=== PATIENT | female | born 1970 | race Hispanic/Latino ===

== ENCOUNTER 2025-08-05 11:03 | Emergency (ER) | payer BC ==
[~2025-08-05] VITALS: Ht 149.9 cm; Wt 68.5 kg
--- NOTE | 2025-08-05 11:18 | NUR ---
PT IN ROOM
[2025-08-05 11:28] LABS: IMMATURE GRANULOCYTE ABSOLUTE 0.03 K/uL (0-1); NUCLEATED RED BLOOD CELLS 0.0 % (0.0-0.19); PLATELET COUNT (AUTO) 290 K/uL (130-400); RED BLOOD CELL COUNT(AUTO) 5.04 MIL/uL (4.00-5.50); RED CELL DISTRIBUTION WIDTH 13.9 % (11.0-15.5); WHITE BLOOD COUNT (AUTO) 10.4 K/uL (4.8-10.8)
[2025-08-05 11:34] LABS: CREATININE 1.1 mg/dL (0.5-1.0); GLOMERULAR FILTR. RATE CALC 59.0 mL/min (>90); GLUCOSE,RANDOM 88.0 mg/dL (70-105); SODIUM SERUM 137.0 mmol/L (136-145); UREA NITROGEN, BLOOD 17.0 mg/dL (7-18)
[2025-08-05 11:58] LABS: SARS-CoV-2, RNA, NAAT NEGATIVE SARS CoV-2 (NEGATIVE)
[2025-08-05 12:00] VITALS: PULSE 110; RESP 20
[2025-08-05 12:05] LABS: INFLUENZA TYPE A Negative For Type A (NEGATIVE); INFLUENZA TYPE B Negative For Type B (NEGATIVE)
--- NOTE | 2025-08-05 12:17 | HMCIMG ---
EXAM: CR Chest, 1 View. CLINICAL HISTORY: cough, sob COMPARISON: None provided. FINDINGS: LUNGS: There is no mass, infiltrate, or acute pulmonary abnormality. PLEURAL SPACES: No evidence of pleural effusion or pneumothorax. MEDIASTINUM: The cardiomediastinal silhouette is within normal limits. BONES: No aggressive appearing osseous lesion seen. IMPRESSION: No acute cardiopulmonary pathology is evident. /[place]
[2025-08-05] MEDS: BENZONATATE 100 MG CAPSULE PO STA (12:20)
[2025-08-05] MEDS: 0.9%NACL 1000ML 1,000 ML IV STA (12:20)
[2025-08-05] MEDS ORDERED: BENZ200C53 PO (12:28)
[2025-08-05] MEDS ORDERED: METH4TAB3 PO (12:28)
[2025-08-05] MEDS ORDERED: ALBUHFA IH (12:28)
--- NOTE | 2025-08-05 12:29 | ERN ---
ED Note History of Present Illness Stated Complaint: COUGH Chief Complaint: Cough Time Seen by MD: 11:07 Time Seen by Midlevel: 11:10 Dictation: 54-year-old female coming in with complaints of cough, shortness a breath and headaches going on for one week. Patient states she has a history of asthma, has not seen her PCP. Patient states she has been using her nebulizing treatme nts and inhalers but has not helped. Denies having any chest pain, chest discomfort, fevers, nausea or vomiting. Allergies: Coded Allergies: Penicillins (Unverified Allergy, Unknown, 08/05/25) sulfamethoxazole (Unverified Allergy, Unknown, 08/05/25) trimethoprim (Unverified Allergy, Unknown, 08/05/25) Past Medical History Past Medical History: Asthma, Diabetes-Type II, Fibromyalgia, Heart Disease Surgical History: Hysterectomy, Cholecystectomy Review of System Dictation Constitutional: Negative for fever,chills, and weight loss Eyes: Negative for injury, pain,redness, and discharge ENT: Negative for injury,pain or swelling Cardiovascular: Negative for chest pain, palpitations, and edema Respiratory: Complaining of cough, shortness a breath Abdomen/GI: Negative for abdominal pain, nausea, vomiting, diarrhea, and constipation Back: Negative for injury and pain : Negative for injury, bleeding and discharge MS/Extremity: Negative for injury and deformity Skin: Negative for rash, and discoloration Neuro: Negative for headache, weakness, numbness, tingling, and seizure Psych: Negative for suicide ideation, homicidal ideation, and hallucinations Review of Systems: was completed Initial Vital Sign VS Vital Signs Date Time Temp Pulse Resp B/P (MAP) Pulse Ox O2 Delivery O2 Flow Rate FiO2 08/05/25 11:05 97.9 118 18 129/72 97 Room Air 0 Physical Exam Dictation General: awake, alert, NAD Head/Face: Normocephalic, atraumatic Eyes: PERRL, EOMI, vision at baseline ENT: oral cavity clear, TMs clear, no signs of infection Neck: Trachea midline, supple, no nuchal rigidity Cardiovascular: RRR, normal S1/S2, No MRGs, no JVD Respiratory: Mild bilateral expiratory wheezing, no tachypnea, no respiratory distress Abdomen: Soft, non-tender, non-distended, normal bowel sounds, no guarding or rebound. Skin: Warm, dry, normal turgor, no rash MS/Extremity: Pulses equal, no cyanosis, neurovascular intact, FROM Neuro: COAx4, GCS 15, strength 5/5, CN 2-12 intact, normal cerebellar exam, normal gait, Psych: Normal behavior, mood, and affect normal Results (Laboratory/Radiology) Laboratory/Radiology Laboratory Tests Test 08/05/25 11:10 08/05/25 11:22 Influenza Type A Antigen Negative For Type A Influenza Type B Antigen Negative For Type B SARS-CoV-2, RNA, NAAT NEGATIVE SARS CoV-2 White Blood Count 10.4 K/uL (4.8-10.8) Red Blood Count 5.04 MIL/uL (4.00-5.50) Hemoglobin 15.2 g/dL (12.0-16.0) Hematocrit 45.3 % (36-48) Mean Corpuscular Volume 89.9 fL (79-99) Mean Corpuscular Hemoglobin 30.2 pg (27.0-33.0) Mean Corpuscular Hemoglobin Concent 33.6 g/dL (32.0-36.0) Red Cell Distribution Width 13.9 % (11.0-15.5) Platelet Count 290 K/uL (130-400) Mean Platelet Volume 9.4 fL (7.5-10.5) Immature Granulocyte % (Auto) 0.3 % (0-1) Neutrophils (%) (Auto) 53.2 % (40.0-77.0) Lymphocytes (%) (Auto) 40.1 % (21.0-51.0) Monocytes (%) (Auto) 5.4 % (3.0-13.0) Eosinophils (%) (Auto) 0.8 % (0.0-8.0) Basophils (%) (Auto) 0.2 % (0.0-5.0) Neutrophils # (Auto) 5.5 K/uL (1.8-7.7) Lymphocytes # (Auto) 4.2 K/uL (1.0-4.8) Monocytes # (Auto) 0.6 K/uL (0.1-1.0) Eosinophils # (Auto) 0.08 K/uL (0.00-0.70) Basophils # (Auto) 0.02 K/uL (0.00-0.20) Absolute Immature Granulocyte (auto 0.03 K/uL (0-1) Nucleated Red Blood Cells 0.0 % (0.0-0.19) Sodium Level 137 mmol/L (136-145) Potassium Level 3.9 mmol/L (3.5-5.1) Chloride Level 101 mmol/L (101-111) Carbon Dioxide Level 26 mmol/L (21-32) Blood Urea Nitrogen 17 mg/dL (7-18) Creatinine 1.1 mg/dL (0.5-1.0) H Glomerular Filtration Rate Calc 59 mL/min (>90) Random Glucose 88 mg/dL (70-105) Total Calcium 9.2 mg/dL (8.5-10.1) Labs Reviewed?: Yes X-RAY Comment: [address] [address] IMAGING REPORT Signed PATIENT: BRI GOEL MR#: [id number] : 1970 SEX: F AGE: 54 LOCATION: [facility] ORDER 15 STATUS: REG ER REPORT#: [id number] SERVICE 13 REASON: cough, sob ORDERING PHYSICIAN: RENALDO DIEZ CNP PROCEDURE: CXR1VW - CHEST 1VW EXAM: CR Chest, 1 View. CLINICAL HISTORY: cough, sob COMPARISON: None provided. FINDINGS: LUNGS: There is no mass, infiltrate, or acute pulmonary abnormality. PLEURAL SPACES: No evidence of pleural effusion or pneumothorax. MEDIASTINUM: The cardiomediastinal silhouette is within normal limits. BONES: No aggressive appearing osseous lesion seen. IMPRESSION: No acute cardiopulmonary pathology is evident. /[place] DICTATED BY: CHU NOGUERA MD DATE: 08/05/251315 ELECTRONICALLY SIGNED BY: CHU NOGUERA MD DATE: 08/05/251315 ED Course ED Course Orders Procedure Category Date Status Time Chest 1vw RAD 08/05/25 Resulted 11:14 Covid Rna Naat LAB 08/05/25 Complete 11:14 Influenza Type A & B, LAB 08/05/25 Complete Rapid 11:14 Cbc With Differential LAB 08/05/25 Complete 11:14 Basic Metabolic Panel LAB 08/05/25 Complete 11:14 12 Lead Ekg Tracing- EKG 08/05/25 Logged Technical 11:14 0.9%Nacl 1000ml (Ns PHA 08/05/25 Complete 1000ml) 11:14 Methylprednisolone PHA 08/05/25 Complete Succ 125mg (Solu-Medr 11:30 Benzonatate 100 Mg PHA 08/05/25 Complete Capsule (Tessalon 100 11:14 Ipratropium/Albuterol PHA 08/05/25 Complete Neb (Duoneb) 11:30 Current Medications Medications (Trade) Dose Ordered Sig/Be Route PRN Reason Start Time Stop Time Status Last Admin Dose Admin Albuterol (DUOneb) 1 UDVIAL ONCE ONCE IH 08/05/25 11:30 08/05/25 11:31 DC 08/05/25 12:00 Benzonatate (Tessalon 100mg Caps) 200 mg ONCE STAT PO 08/05/25 11:14 08/05/25 11:17 DC Methylprednisolone Sodium Succinate (Solu-medROL 125MG) 125 mg ONCE ONCE IVP 08/05/25 11:30 08/05/25 11:31 DC Sodium Chloride 1,000 ml @ 1,000 mls/hr Q1H STAT IV 08/05/25 11:14 08/05/25 12:13 DC Vital Signs Date Time Temp Pulse Resp B/P (MAP) Pulse Ox O2 Delivery O2 Flow Rate FiO2 08/05/25 12:00 110 20 08/05/25 11:05 97.9 118 18 129/72 97 Room Air 0 Medical Decision Making MDM MDM: 54-year-old female coming in with complaints of cough, shortness a breath and headaches going on for one week. Patient states she has a history of asthma, has not seen her PCP. Patient states she has been using her nebulizing treatments and inhalers but has not helped. Denies having any chest pain, chest discomfort, fevers, nausea or vomiting. Blood work is unremarkable. Chest x- ray shows no acute finding. Patient states feels better after treatment in the emergency room.Will prescribe pt medication to take home and follow up with PCP in 1-2 days. Differential diagnosis: pneumonia, covid, flu, bronchitis Rationale: Tests considered and ordered secondary to shared decision making include: Previous outside records reviewed: Old ER visits. Risk of complication and/or morbidity or mortality of patient management: None Medications-Per medication reconciliation Need for hospitalization: Patient does not meet criteria for hospitalization. Need for emergency major/minor surgery: No There are no social concerns with this patient. Prescription drug management Prescriptions will include symptomatic care Patient's prior external medical records from other ER visits were reviewed by me as indicated. Prior testing and results from previous visits were reviewed. Prior tests were taken into account with medical decision making and resource utilization, independent historian/historians were used to obtain complete medical history. I independently interpreted the test that were performed, results were reviewed by me and considered findings on radiology if ordered. Medical management and examination interpretation discussions were had by me with other qualified healthcare professionals as indicated for the patient's care. DX & DISP Disposition: Inpatient Departure Impression: Primary Impression: Acute bronchitis Condition: Stable Scripts Methylprednisolone (Medrol) 4 Mg Tab.ds.pk 1 TAB PO AD for 6 Days, #21 TAB 0 Refills 6 on day 1 then reduce by one tablet daily until gone Prov: RENALDO DIEZ CNP 08/05/25 Albuterol Sulfate (Ventolin Hfa/Proventil Hfa/Proair Hfa) 90 Mcg Puff 2 PUFF IH Q4H for WHEEZING, #1 INHALER 0 Refills Prov: RENALDO DIEZ CNP 08/05/25 Benzonatate (Benzonatate) 200 Mg Capsule 1 CAP PO TIDP PRN for cough for 7 Days, #21 CAP 0 Refills Prov: RENALDO DIEZ CNP 08/05/25 Additional Instructions: Follow up with PCP in 1-2 days. Return to ER as needed. Referrals: SELF,REFERRAL (PCP) Time of Disposition: 12:29 I have reviewed the case, and I agree with, Diagnosis and Plan RENALDO DIEZ CNP Aug 05, 2025 12:29
[2025-08-05 12:41] VITALS: BP 132/77; PULSE 106; RESP 15; TEMP 98.1; O2SAT 96
--- NOTE | 2025-08-05 13:09 | EKG ---
[facility] Test Date: 2025-08-05 Test Time: 11:26:05 Pat Name: BRI GOEL Department: ED Room: Gender: F [employer]in Mixer: [id number] : 1970 Requested By: RENALDO DIEZ Order Number: [id number] Reading MD: Denisse Phillips Measurements Intervals [place] Rate: 111 P: 67 IA: 127 QRS: 77 QRSD: 110 T: 23 QT: 323 QTc: 438 Interpretive Statements Sinus tachycardia Low voltage, precordial leads No previous ECG available for comparison Electronically Signed On 08-05-2025 13:45:57 [employer] by Denisse Phillips Please click the below link to view image of tracing.
== END 2025-08-05 12:54 | disposition home or self-care (01) ==
LOC: EDH 11:03
DX: J20.9 Acute bronchitis, unspecified (principal); E11.9 Type 2 diabetes mellitus without complications; I51.9 Heart disease, unspecified; J45.909 Unspecified asthma, uncomplicated; M79.7 Fibromyalgia; Z20.822 Contact with and (suspected) exposure to COVID-19; Z88.0 Allergy status to penicillin; Z88.1 Allergy status to other antibiotic agents; Z88.2 Allergy status to sulfonamides; Z90.49 Acquired absence of other specified parts of digestive tract; Z90.710 Acquired absence of both cervix and uterus
CPT/HCPCS: 99284; 96374; 71045; 87635; 80048; 85025; 87804 ×2; 36415; 93005; 94640; J2919; J7030